=== PATIENT | female | born 1985 | race Two or more races ===

== ENCOUNTER 2018-10-09 06:09 | Day surgery (SDC) | payer OTHER | END 2018-10-09 17:20 | disposition home or self-care, planned readmission (81) | LOC: CIR.AMB 06:09 | DX: N87.0 Mild cervical dysplasia (principal) ==

== ENCOUNTER → 2024-08-17 11:30 | Outpatient (CLI) | payer OTHER | END | disposition home or self-care (01) | LOC: PRENATAL 11:30 | PROVIDERS: ATTEND Obstetrics & Gynecology Maternal & Fetal Medicine | DX: O44.00 Complete placenta previa NOS or without hemorrhage, unspecified trimester (principal); O34.40 Maternal care for other abnormalities of cervix, unspecified trimester; O09.529 Supervision of elderly multigravida, unspecified trimester; Z3A.21 21 weeks gestation of pregnancy ==